=== PATIENT | male | born 1935 | race Caucasian/White ===

== ENCOUNTER 2019-08-23 19:40 | Emergency (ER) | payer MEDICARE, BC ==
[2019-08-23] MEDS ORDERED: Lidocaine 2% Jelly 10 ML Urojet ONE (19:52)
[2019-08-23] MEDS ORDERED: Lidocaine 2% Jelly 10 ML Urojet MUCMEM ONE (19:53)
[2019-08-23] MEDS ORDERED: Tamsulosin 0.4 MG Cap.ER PO ONE (20:40)
--- NOTE | 2019-08-23 21:01 | EDM.PDOC ---
ED HPI GENERAL MEDICAL PROBLEM - General Chief Complaint: Genitourinary Problem Stated Complaint: KIDNEY STONES Time Seen by Provider: 08/23/19 19:45 Source of Information: Reports: Patient History Limitations: Reports: No Limitations - History of Present Illness INITIAL COMMENTS - FREE TEXT/NARRATIVE: 84 yo male presents with severe pelvic pain and great urge to urinate. last time he urinated was 1700. He does have hx of BPH and had been taking flomax up until a few weeks ago when he self discontinued. He has had steady increase in nighttime urination since discontinuing, his son reports greater then 12 times last evening. He denies burning with urination but does report very small amounts. He denies general ill feelings, fever, N/V/D Bladder Pain Score (Numeric/FACES): 10 - Related Data Allergies Allergy/AdvReac Type Severity Reaction Status Date / Time No Known Allergies Allergy Verified 08/23/19 20:01 Home Meds: Home Meds hydrALAZINE [Apresoline] 75 mg PO BID 08/23/19 [History] metFORMIN [Glucophage] 250 mg PO DAILY 08/23/19 [History] traMADol [Ultram] 50 mg PO TID 08/23/19 [History] Past Medical History HEENT History: Reports: Hard of Hearing, Impaired Vision Cardiovascular History: Reports: Hypertension, ID Genitourinary History: Reports: Other (See Below) Other Genitourinary History: frequent urination Endocrine/Metabolic History: Reports: Other (See Below) Other Endocrine/Metabolic History: borderline diabetic - Past Surgical History HEENT Surgical History: Reports: Cataract Surgery Cardiovascular Surgical History: Reports: Coronary Artery Bypass GI Surgical History: Reports: Colonoscopy Musculoskeletal Surgical History: Reports: Other (See Below) Other Musculoskeletal Surgeries/Procedures:: l shoulder pain Dermatological Surgical History: Reports: Skin Biopsy Social & Family History - Tobacco Use Smoking Status *Q: Former Smoker Years of Tobacco use: 30 Packs/Tins Daily: 1 Used Tobacco, but Quit: Yes Month/Year Tobacco Last Used: 35 years ago Second Hand Smoke Exposure: No - Caffeine Use Caffeine Use: Reports: Coffee, Soda - Alcohol Use Days Per Week of Alcohol Use: 7 Number of Drinks Per Day: 5 Total Drinks Per Week: 35 Date of Last Drink: 08/23/19 Time of Last Drink: 18:00 - Recreational Drug Use Recreational Drug Use: No ED ROS GENERAL - Review of Systems Review Of Systems: See Below Constitutional: Denies: Fever, Chills, Fatigue Respiratory: Denies: Shortness of Breath, Wheezing Cardiovascular: Denies: Chest Pain GI/Abdominal: Reports: Abdominal Pain : Reports: Urinary Retention ED EXAM, GI/ABD - Physical Exam Exam: See Below Exam Limited By: No Limitations General Appearance: Alert, WD/WN, Moderate Distress (relieved after cath) Respiratory/Chest: No Respiratory Distress, Lungs Clear, Normal Breath Sounds, No Accessory Muscle Use, Chest Non-Tender. No: Crackles, Rhonchi, Wheezing Cardiovascular: Regular Rate, Rhythm, No Murmur (Male) Exam: Other (greater then 1000 mL on initial output) Neurological: Alert, Oriented Psychiatric: Normal Affect, Normal Mood Skin Exam: Warm, Dry, Intact Course - Vital Signs Last Recorded V/S: Last Vital Signs Temp 37.2 C 08/23/19 20:27 Pulse 110 H 08/23/19 20:27 Resp 32 H 08/23/19 20:27 BP 180/95 H 08/23/19 20:27 Pulse Ox 97 08/23/19 20:27 - Orders/Labs/Meds Orders: Active Orders 24 hr Category Date Time Status Wylie Catheter Insertion [Insert Urinary Catheter] [OM. Care 08/23/19 20:45 Ordered PC] Q24H Urinary Catheter Assessment [RC] ASDIRECTED Care 08/23/19 20:39 Active Labs: Laboratory Tests 08/23/19 Range/Units 20:05 Urine Color Yellow (YELLOW) Urine Appearance Slightly cloudy A (CLEAR) Urine pH 6.5 (5.0-8.0) Ur Specific Randolph 1.010 (1.008-1.030) Urine Protein 30 H (NEGATIVE) mg/dL Urine Glucose (UA) Negative (NEGATIVE) mg/dL Urine Ketones Negative (NEGATIVE) mg/dL Urine Occult Blood Trace-intact H (NEGATIVE) Urine Nitrite Negative (NEGATIVE) Urine Bilirubin Negative (NEGATIVE) Urine Urobilinogen 0.2 (0.2-1.0) EU/dL Ur Leukocyte Esterase Negative (NEGATIVE) Urine RBC 0-5 (0-5) Urine WBC Not seen (0-5) Ur Epithelial Cells Not seen Amorphous Sediment Not seen Urine Bacteria Rare Urine Mucus Not seen Meds: Medications Discontinued Medications Generic Name Dose Route Start Last Admin Trade Name Freq PRN Reason Stop Dose Admin Lidocaine HCl 10 ml 08/23/19 19:53 08/23/19 19:55 Xylocaine 2% Jelly MUCMEM 08/23/19 19:54 10 ml ONETIME ONE Administration Lidocaine HCl Confirm 08/23/19 19:52 08/23/19 20:14 Xylocaine 2% Jelly Administered 08/23/19 19:53 Not Given Dose 10 ml .ROUTE .STK-MED ONE Tamsulosin HCl 0.4 mg 08/23/19 20:40 08/23/19 20:59 Flomax PO 08/23/19 20:41 0.4 mg ONETIME ONE Administration Departure - Departure Time of Disposition: 20:56 Disposition: Home, Self-Care 01 Condition: Good Clinical Impression: Urinary retention due to benign prostatic hyperplasia - Discharge Information *PRESCRIPTION DRUG MONITORING PROGRAM REVIEWED*: Not Applicable *COPY OF PRESCRIPTION DRUG MONITORING REPORT IN PATIENT HARISH: Not Applicable Instructions: Acute Urinary Retention, Male, [id number] Referrals: PCP,None [Primary Care Provider] - Forms: ED Department Discharge Additional Instructions: catheter was left in place until you see urology restart tamsulosin 0.4 mg daily we gave you today's dose in the emergency room call urology in the AM: [facility] [phone] tell them you had a catheter placed in the emergency room last night with initial output of 1000 mL and the catheter remains in place. request appoint by Saturday. - My Orders Last 24 Hours: My Active Orders 08/23/19 20:39 Urinary Catheter Assessment [RC] ASDIRECTED 08/23/19 20:45 Wylie Catheter Insertion [Insert Urinary Catheter] [OM.PC] Q24H - Assessment/Plan Last 24 Hours: My Active Orders 08/23/19 20:39 Urinary Catheter Assessment [RC] ASDIRECTED 08/23/19 20:45 Wylie Catheter Insertion [Insert Urinary Catheter] [OM.PC] Q24H
== END 2019-08-23 21:09 | disposition home or self-care (01) ==
LOC: JP.ED 19:40
DX: N40.1 Benign prostatic hyperplasia with lower urinary tract symptoms (principal); R33.8 Other retention of urine; I10 Essential (primary) hypertension; I25.2 Old myocardial infarction; Z87.891 Personal history of nicotine dependence
CPT/HCPCS: 51702; 51798; 81001; 99283; 99284; A9270

== ENCOUNTER 2019-08-24 07:36 | Emergency (ER) | payer MEDICARE, BC ==
--- NOTE | 2019-08-24 08:18 | EDM.PDOC ---
ED HPI GENERAL MEDICAL PROBLEM - General Chief Complaint: Genitourinary Problem Stated Complaint: UTI LOTS OF PAIN Time Seen by Provider: 08/24/19 08:06 Source of Information: Reports: Patient History Limitations: Reports: No Limitations - History of Present Illness INITIAL COMMENTS - FREE TEXT/NARRATIVE: pt was seen last nite because he was not able to void. He had a baker placed last nite and he is back today because he has blood in his urine, Onset: Today Duration: Hour(s): Location: Reports: Abdomen, Other (pt has blood in his urine. ) Associated Symptoms: Reports: No Other Symptoms - Related Data Allergies Allergy/AdvReac Type Severity Reaction Status Date / Time No Known Allergies Allergy Verified 08/24/19 08:04 Home Meds: Home Meds hydrALAZINE [Apresoline] 75 mg PO BID 08/23/19 [History] metFORMIN [Glucophage] 250 mg PO DAILY 08/23/19 [History] traMADol [Ultram] 50 mg PO TID 08/23/19 [History] Past Medical History HEENT History: Reports: Hard of Hearing, Impaired Vision Cardiovascular History: Reports: Hypertension, [place] Genitourinary History: Reports: Other (See Below) Other Genitourinary History: frequent urination Endocrine/Metabolic History: Reports: Other (See Below) Other Endocrine/Metabolic History: borderline diabetic - Past Surgical History HEENT Surgical History: Reports: Cataract Surgery Cardiovascular Surgical History: Reports: Coronary Artery Bypass GI Surgical History: Reports: Colonoscopy Musculoskeletal Surgical History: Reports: Other (See Below) Other Musculoskeletal Surgeries/Procedures:: l shoulder pain Dermatological Surgical History: Reports: Skin Biopsy Social & Family History - Caffeine Use Caffeine Use: Reports: Coffee, Soda ED ROS GENERAL - Review of Systems Review Of Systems: See Below Constitutional: Reports: No Symptoms HEENT: Reports: No Symptoms Respiratory: Reports: No Symptoms Cardiovascular: Reports: No Symptoms Endocrine: Reports: No Symptoms GI/Abdominal: Reports: No Symptoms : Reports: Other (pt noticed some blood in the urine this am. He has had the sensation to push to void. He was advised to try to relax.) Musculoskeletal: Reports: No Symptoms Skin: Reports: No Symptoms Neurological: Reports: No Symptoms ED EXAM, GI/ABD - Physical Exam Exam: See Below Text/Narrative:: pt arrived with blood in the urine,. He did have pain during the nite and he was pushing to void. Exam Limited By: No Limitations General Appearance: Alert, Anxious, Moderate Distress Ears: Normal TMs Nose: Normal Inspection Throat/Mouth: Normal Inspection Head: Atraumatic Neck: Normal Inspection Respiratory/Chest: No Respiratory Distress Cardiovascular: Regular Rate, Rhythm GI/Abdominal Exam: Other (neg. ) (Male) Exam: Other ( baker cath was inserted last nite. He has very little discomfort at this point. His urine is slightly bloody. He does not have clots, he is emptying is bladder ok. He was advised to push fluids. ) Rectal (Males) Exam: Deferred Back Exam: Normal Inspection Extremities: Normal Inspection Neurological: Alert, Oriented, Normal Cognition Psychiatric: Anxious Course - Vital Signs Last Recorded V/S: Last Vital Signs Temp 36.1 C 08/24/19 08:09 Pulse 107 H 08/24/19 08:09 Resp 19 08/24/19 08:09 BP 187/100 H 08/24/19 08:09 Pulse Ox 93 L 08/24/19 08:09 - Re-Assessments/Exams Free Text/Narrative Re-Assessment/Exam: 08/24/19 08:32 bladder scan was ok. He had a urine done last nite which did not show infection. He will set up a appt with urology. Departure - Departure Time of Disposition: 08:26 Disposition: Home, Self-Care 01 Condition: Fair Clinical Impression: Hematuria - Discharge Information Referrals: PCP,None [Primary Care Provider] - Forms: ED Department Discharge Care Plan Goals: pudh fluids, get the flomax filled and start back on that before the cath is removed. Get appt with urology. Pt can use tylenol and motrin for pain. Quit pushing to void.
== END 2019-08-24 08:33 | disposition home or self-care (01) ==
LOC: JP.ED 07:36
DX: R31.9 Hematuria, unspecified (principal); I10 Essential (primary) hypertension; I25.2 Old myocardial infarction; Z79.899 Other long term (current) drug therapy
CPT/HCPCS: 99283